=== PATIENT | female | born 1990 | race Caucasian/White ===

== ENCOUNTER 2020-03-28 00:31 | Outpatient (CLI) | payer BC, SELFPAY ==
[2020-03-28 21:18] LABS: SARS-CoV-2 RNA PCR Negative
== END 2020-03-28 00:32 | disposition home or self-care (01) ==
LOC: ANHCOVIDDT 00:31
PROVIDERS: Visit Provider Obstetrics & Gynecology
DX: Z01.812 Encounter for preprocedural laboratory examination (principal); Z20.828 Contact with and (suspected) exposure to other viral communicable diseases
CPT/HCPCS: 87635; C9803; U0003

== ENCOUNTER 2020-03-31 00:14 | Day surgery (SDC) | payer BC, SELFPAY ==
[2020-03-19 11:47] VITALS: BMI 22.3
--- NOTE | 2020-03-30 11:57 | P.PNAN_ITS ---
Anes - Initial Pre Proc Eval Procedure: Operation Date: 03/31/20 13:30 Proposed Procedures p Laparoscopy with Surgical Fulguration and Excision Lesions of Right Ovary - Kirit Amanda MD Date/Time: 03/30/20 11:57 Surgeon: Kirit Amanda MD Pre Op Diagnosis: pelvic and perineal pain Patient Data Age: 30 Gender: F Height: 1.63 m Weight: 58.97 kg Allergies Allergy/AdvReac Type Severity Reaction Status Date / Time No Known Allergies Allergy Verified 03/31/20 11:31 Home Medications Medication Instructions Recorded Confirmed Type multivitamin 1 tablet PO DAILY 03/19/20 03/31/20 History norgestimate-ethinyl estradiol 1 tablet PO DAILY 03/19/20 03/31/20 History [Tri-Sprintec (28)] Patient hx anesthesia problems: none Family hx anesthesia problems: none [facility] Social History Social History Smoking status: Never smoker Alcohol intake: current Drinks per week: 1 Spiritual care concerns: No Anes - Eval Final PreProcedure Day of Procedure 03/30/20 11:57 Patient weight: normal Heart: regular rate and rhythm Lungs: clear to auscultation and normal air movement Airway: Mallampati scale class II Neurological: alert and oriented Last oral intake: >/= 8 hours ASA classification: I Emergent: no Anesthetic plan: proceed Anesthesia type and monitoring: general ETT Informed Consent: The patient's anesthetic plan and its attendant risks and benefits were discussed with the patient/family/POA. Questions were solicited and answers provided to the satisfaction of the patient/family/POA.
[2020-03-31] VITALS (12 sets, daily range): BP systolic 107–121; BP diastolic 55–67; PULSE 73–100; RESP 14–18; TEMP 36.3–37.2; O2SAT 98–100
[2020-03-31] MEDS: ACETAMINOPHEN 500 MG TABLET 1000 MG PO (12:03)
[2020-03-31] MEDS: KETOROLAC 15 MG/ML VIAL (*BKC) IV PUSH (12:03)
[2020-03-31] MEDS: LACTATED RINGERS 1,000 ML 30 ML IV CONT ×3 (12:09→17:29)
--- NOTE | 2020-03-31 13:36 | WPDHPUPDATE1 ---
History and Physical Update Update Date/Time: 03/31/20 13:36 History and Physical has been reviewed, including an updated exam of the patient. There are NO changes in the patient's condition. Risks, benefits, and alternatives have been discussed and questions answered. Patient agrees to proceed with procedure.
--- NOTE | 2020-03-31 17:03 | SUR.OPER ---
EBL:5cc
[2020-03-31] MEDS: diphenhydrAMINE HCl INJ 50 MG/ML VIAL 25 MG IV PUSH (17:10)
--- NOTE | 2020-03-31 17:11 | P.OP_ITS ---
Procedure Note - Detailed Date of procedure: 03/31/20 Pre-op diagnosis: pelvic and perineal pain Post-op diagnosis: same ( Severe endometriosis, adhesions) Procedure performed: 2 hours of adhesiolysis, excision of endometriosis and fulguration of endometriosis. Description of procedure: The patient was taken the operating room. She was prepped and draped in the dorsal lithotomy position after induction of general anesthesia. A 5 mm left upper quadrant incision was made in the abdominal skin with a scalpel. A 5 mm trocar was inserted the intra-abdominal cavity under direct visualization of the scope. A 5 mm left lower quadrant incision was made with the scalp on the abdominal skin and a 5 mm trocar was inserted the intra- abdominal cavity under direct visualization of the scope. A 5 mm infraumbilical incision was made with scalpel and a 5 mm trocar was inserted into the intra- abdominal cavity under direct visualization of the scope. Extensive adhesiolysis, excision of endometriosis and fulguration of endometriosis. The peritoneum was removed from the posterior cul-de-sac and entirely. There were some areas on the posterior uterus that were fulgurated. There was some apparent myometrial tissue that was fulgurated as well. There was fulguration of endometriosis on the bladder. Both ureters were dissected out from the pelvic brim down to the level of the uterine artery. over 2 hours of adhesion lysis, excision of endometriosis and fulguration of endometriosis was performed. The pelvis was irrigated with copious amounts of normal saline. The pneumoperitoneum was reduced. The trocars were removed. The patient was taken recovery room stable condition. Sponge lap and needle counts were correct x2. Anesthesia: GETA Surgeon: Kirit Amanda MD Estimated blood loss (mL): 100 Drains: No Packing: No Complications: No immediate complications Condition: stable Disposition: PACU Findings: endometriosis throughout the posterior cul-de-sac, there was an endometrioma of the right ovary, there was hard old blood clot within the endometrioma. There was endometriosis on the right infundibulopelvic ligament. There was endometriosis on the right side of the dome of the bladder. There was endometriosis deep in the posterior cul-de-sac and around the round ligaments.
[2020-03-31] MEDS: SCOPOLAMINE 1.5 MG PATCH TRANSDERM (17:22)
[2020-03-31] MEDS: ONDANSETRON INJ 4 MG/2 ML VIAL IV PUSH (18:25)
== END 2020-03-31 19:59 | disposition home or self-care (01) ==
PROVIDERS: Visit Provider Obstetrics & Gynecology
PROC: (CPT 49320; principal; 2020-03-31 13:30)
DX: R10.2 Pelvic and perineal pain (principal); N80.3 Endometriosis of pelvic peritoneum; N80.1 Endometriosis of ovary; N80.8 Other endometriosis; N73.6 Female pelvic peritoneal adhesions (postinfective)
CPT/HCPCS: 58662; 36415; 86850; 86900; 86901; 88305; A9270; J1100; J1200; J1885; J2250; J2405; J2704; J2710; J3010; J7030; J7120; Q9968

== ENCOUNTER 2022-10-24 16:56 | Outpatient (CLI) | payer BC, SELFPAY ==
[2022-10-24 17:50] VITALS: BP 119/74; PULSE 91
--- NOTE | 2022-10-24 17:50 | PC.NURSE ---
called Dr. Amanda notified pt visit for leaking fluid. reported negative ROM plus and reactive tracing. Made aware of contraction which pt not feeling. discharge order received
== END 2022-10-24 18:00 | disposition home or self-care (01) ==
LOC: ANHOBOP 17:42 → ANHLDR 17:42
PROVIDERS: Visit Provider Obstetrics & Gynecology
DX: O42.90 Premature rupture of membranes, unspecified as to length of time between rupture and onset of labor, unspecified weeks of gestation (principal)
CPT/HCPCS: 59025; 84112; 99199

== ENCOUNTER 2022-11-20 02:07 | Inpatient (IN) | payer BC, SELFPAY ==
[2022-11-20] VITALS (27 sets, daily range): BP systolic 99–142; BP diastolic 56–81; PULSE 76–135; RESP 18; TEMP 36.3–37.5; O2SAT 98; BMI 28.3
[2022-11-20 03:03] LABS: Basophils Percent Auto 0.3 % (0.2-1.2); Eosinophils Absolute Auto 0.1 K/mm3 (0-0.3); Eosinophils Percent Auto 0.9 % (0-4.4); Hematocrit 35.5 % (37.0-47.0); Hemoglobin 11.2 g/dL (12.0-15.0); Immature Granulocyte Absolute 0.15 K/mm3 (0.00-0.031); Immature Granulocyte Percent A 1.2 % (0-0.5); Lymphocytes Absolute Auto 2.22 K/mm3 (0.9-3.2); Lymphocytes Percent Auto 17.4 % (18.3-44.2); Mean Corpuscular HGB Conc 31.5 g/dl (32-36); Mean Corpuscular Hemoglobin 25.9 pg (26-34); Mean Platelet Volume 9.9 fl (7.4-10.4); Monocytes Percent Auto 7.5 % (2.6-8.5); Neutrophils Absolute Auto 9.3 K/mm3 (1.3-6.7); Neutrophils Percent Auto 72.7 % (45.5-73.1); Platelet Count Result 303 k/mm3 (150-375); Red Blood Count 4.33 M/mm3 (4.2-5.4); Red Cell Distribution Width 14.9 % (11.5-14.5); White Blood Count 12.8 K/mm3 (4.5-10.0)
--- NOTE | 2022-11-20 03:04 | LDADM ---
This patient, Megan Dyson, was admitted to Labor/Delivery/Recovery 104 on 11/20/22 at 02:07. Plans for labor, pain management and were discussed with patient. Patient/family oriented to hospital policies and general routines including ID bracelet, bed and alarms, visiting hours, pain management, procedures, bathroom and other care routines, personal items, smoking policy, room service/diet and guest tray routines, security routines, and visiting hours. Patient/Family are encouraged to report perceived risks to care and to ask questions if they do not understand what they are told or what they should do. See OBIX for further documentation.
--- NOTE | 2022-11-20 08:17 | WPDOBADMIT ---
Obstetrics - Admit Note Admission Note: record reviewed. No pertinent additions to the history and/or any subsequent changes in the physical findings that are not consistent with the expected course of the were found. pt arrived in labor sve 5/-1 AROM, moderate amount of clear, odorless fluid, anticipate vaginal delivery Additions to the history and/or subsequent changes in the physical findings follow. None.
[2022-11-20] MEDS: LACTATED RINGERS 1,000 ML 75 ML IV CONT (11:13)
[2022-11-20] MEDS: OXYTOCIN 30 UNITS/NS 500 ML 30 UNITS/500 ML BAG IV CONT (16:22)
[2022-11-20] MEDS: LIDOCAINE HCL 1% LOCAL INJ 20 ML VIAL (20:11)
--- NOTE | 2022-11-20 20:29 | PM.OBPRVD ---
OB - Delivery Note Procedure Delivery date: 11/20/22 Procedure: Delivery augmentation: Rupture of Membranes and Pitocin Delivery monitor: External FHT and External Uterine Route of delivery: Laceration Description: Perineal - 1st Degree Delivery repair: vicryl Specimen: No Quantitative Blood Loss (ml): 220 Anesthesia type: Local Disposition: Floor Gracey Baby Date of : 11/20/22 Time of : 20:03 Weeks of gestation at delivery: 40 gender: Female presentation: vertex position: Left Occiput Anterior Placenta delivery description: Spontaneous Cord Vessel Description: 3 Vessels, Clamped/Cut, Delayed Cord Clamping and Other (velamentous insertion) score one minute: 9 score five minutes: 9 Narrative: mother and baby skin to skin in stable condition
[2022-11-20] MEDS: OXYTOCIN 30 UNITS/NS 500 ML 30 UNITS/500 ML BAG 125 UNITS IV CONT (20:56)
[2022-11-20] MEDS: BENZOCAINE 20% AER SPR (*SP) 56 GM CAN 1 SPRAY TOPICAL (22:30)
[2022-11-20] MEDS: WITCH HAZEL 40 PADS 1 PAD TOPICAL (22:30)
[2022-11-20] MEDS: IBUPROFEN 600 MG TABLET PO (23:05)
--- NOTE | 2022-11-20 23:27 | PC.NURSE ---
11/20/2022 at 2249 Patient transferred to post room #288 via wheelchair. Support person present. Oriented to unit, room, information board, rooming in, admission packet and security measures. Patient verbalizes understanding.
[2022-11-21 04:40] VITALS: BP 119/67; PULSE 99; RESP 18; TEMP 37.2; O2SAT 99
[2022-11-21 05:04] LABS: Hematocrit 30.8 % (37.0-47.0); Hemoglobin 9.7 g/dL (12.0-15.0)
[2022-11-21 05:37] LABS: Rapid Plasma Reagin Non-Reactive (NonReactive)
--- NOTE | 2022-11-21 06:39 | PM.OBPNVD ---
OB - PN: Subj Subjective Date/time seen: 11/21/22 06:39 s/p vaginal delivery day 1 breast feeding doing well OB - PN: Obj Data Labs 11/21/22 04:47 Labs: Laboratory Results - last 24 hr 11/20/22 11/21/22 02:51 04:47 Hgb 9.7 L Hct 30.8 L RPR Non-reactive OB - PN A/P Plan day: 1 Plan: routine care Time Spent With Patient Time: Total time spent is greater than 50% in coordination of care (as documented) at patient's floor/unit and/or counseling patient: Review of Systems Review of Systems: All systems reviewed & are unremarkable except as noted in HPI and below Exam Const: General: cooperative and healthy appearing Resp: Effort & Inspection: normal respiratory effort Cardio: Rate: regular rate Rhythm: regular rhythm GI: Inspection: normal to inspection Back/Spine/Pelvis: Back: no CVA tenderness Skin: General skin exam: normal color Extrem: Right lower extremity: normal to inspection Left lower extremity: normal to inspection Psych: Appearance: grossly normal
[2022-11-21 07:35] VITALS: BP 107/61; PULSE 88; RESP 20; TEMP 36.7; O2SAT 96
[2022-11-21] MEDS: POLYSACCHARIDE IRON COMPLEX 150 MG CAPSULE PO ×2 (08:24→15:18)
[2022-11-21] MEDS: DOCUSATE SODIUM 100 MG CAPSULE PO ×2 (08:24→15:18)
[2022-11-21] MEDS: MULTIVIT/MIN/PREN/FOL AC/IRON TABLET 1 TAB PO (08:24)
[2022-11-21] MEDS: IBUPROFEN 600 MG TABLET PO ×2 (08:25→15:18)
--- NOTE | 2022-11-21 13:31 | PC.NURSE ---
[id number] Introductions were made, then consulted with patient to assess needs related to . Mother led the conversation with her?plans to feed?her infant and the?experience so far. Resources provided for inpatient and outpatient services with a business card. Breast pump provided due to separation with . Instructions given on cleaning, care, usage, that there should be no pain, pumping schedule for milk production, collection, and storage of human milk. Parents are encouraged to record pumping schedule on the pumping log. Patient was assessed for correct placement, flange size, to pump for comfort and nipple stretching/stimulation for adequate milk production every 3 hours (8 times in 24 hours) 1-2 times at night. Mother voiced understanding of the education shared along with mom and baby guide for additional resource information. Reported to the primary RN.
[2022-11-21 15:25] VITALS: BP 119/78; PULSE 96; RESP 16; TEMP 36.4; O2SAT 100
--- NOTE | 2022-11-22 14:57 | PM.OBDSVD ---
DS: Admitting Diagnosis Discharge Date 11/21/22 Admitting Diagnosis labor DS: Discharge Diagnosis Discharge Diagnosis (1) Vaginal delivery: Code(s): O80 - Encounter for full-term uncomplicated delivery Status: Acute OB - DS: Summary OB Procedures : None OB Procedures Intrapartum: Spontaneous Vag Delivery OB Procedures: : None Time Spent with Patient Time attestation: Total time spent providing and/or coordinating discharge services: Discharge Plan Discharge Discharging Clinician: Carline Rojas Patient Disposition: Home, Self-Care Activity: pelvic rest Diet: regular Discharge Instructions: Education: Mom and Baby Guide Given to: Mother Follow-Up: Call your delivering provider's office for an appointment to be seen in: 4 Weeks BREAST CARE: * Wear a snug supportive bra. * For engorgement discomfort: Breast Feeding: * Apply warm moist washcloths * Express milk as needed to relieve engorgement * Wear loose clothing * For sore nipples: * Identify correct latch-on * Apply warm moist washcloths before and after nursing * Air dry nipples after nursing * May apply Lansinoh cream to nipples EPISIOTOMY/PERINEAL CARE: * Until bleeding stops, use your gio bottle after urinating * Change your pad frequently throughout the day * You may take sitz baths several times a day (fill your bathtub with warm water and soak for 20 minutes.) Do NOT bathe in the water * No tub baths until seen by your physician - You may shower ACTIVITY: * Rest as much as possible. * Do not exercise or lift anything heavier than your baby (such as laundry or other children.) * Avoid stairs or driving as much as possible. * Do not put anything into the vagina. No douching, tampons, or sexual activity until seen by physician. NOTIFY PHYSICIAN IF YOU HAVE ANY QUESTIONS OR IF ANY OF THE FOLLOWING SYMPTOMS OCCUR: * If your episiotomy or incision becomes red, swollen, or more painful than what you have experienced in the hospital. * If your vaginal bleeding becomes foul smelling. * If your vaginal bleeding becomes more heavy than a period or if your bleeding changes from pink to bright red. However, you may pass an occasional walnut-sized clot once or twice for the first week . * If you experience a sharp, shooting pain in you calves. * If you discover a hard, reddened area on your breast or if you experience flu-like symptoms. DIET: * Eat regular, well-balanced meals. * Drink plenty of fluids daily. If , drink to thirst. Stand Alone Forms: General Discharge Information Follow-up/Referrals: Carline Rojas CNM [Certified Nurse [employer]uber] - Discharge Medications: Continued multivitamin Tablet 1 tablet PO DAILY Date of admission: 11/20/22 02:07 Primary Care Provider: PHYSICIAN,LANDSCAPING MANAGER Admitting Provider: Kirit Amanda Attending physician on admission: Kirit Amanda Condition: Stable
--- NOTE | 2022-11-23 07:41 | P.DS_ITS ---
DS: Admitting Diagnosis Discharge Date 11/21/22 Admitting Diagnosis labor DS: Discharge Diagnosis Discharge Diagnosis (1) Vaginal delivery: Code(s): O80 - Encounter for full-term uncomplicated delivery Status: Acute OB - DS: Summary OB Procedures : None OB Procedures Intrapartum: Spontaneous Vag Delivery OB Procedures: : None Time Spent with Patient Time attestation: Total time spent providing and/or coordinating discharge services: Discharge Plan Discharge Consulting providers: Carline Rojas Discharging Clinician: Carline Rojas Patient Disposition: Home, Self-Care Activity: pelvic rest Diet: regular Discharge Instructions: Education: Mom and Baby Guide Given to: Mother Follow-Up: Call your delivering provider's office for an appointment to be seen in: 4 Weeks BREAST CARE: * Wear a snug supportive bra. * For engorgement discomfort: Breast Feeding: * Apply warm moist washcloths * Express milk as needed to relieve engorgement * Wear loose clothing * For sore nipples: * Identify correct latch-on * Apply warm moist washcloths before and after nursing * Air dry nipples after nursing * May apply Lansinoh cream to nipples EPISIOTOMY/PERINEAL CARE: * Until bleeding stops, use your gio bottle after urinating * Change your pad frequently throughout the day * You may take sitz baths several times a day (fill your bathtub with warm water and soak for 20 minutes.) Do NOT bathe in the water * No tub baths until seen by your physician - You may shower ACTIVITY: * Rest as much as possible. * Do not exercise or lift anything heavier than your baby (such as laundry or other children.) * Avoid stairs or driving as much as possible. * Do not put anything into the vagina. No douching, tampons, or sexual activity until seen by physician. NOTIFY PHYSICIAN IF YOU HAVE ANY QUESTIONS OR IF ANY OF THE FOLLOWING SYMPTOMS OCCUR: * If your episiotomy or incision becomes red, swollen, or more painful than what you have experienced in the hospital. * If your vaginal bleeding becomes foul smelling. * If your vaginal bleeding becomes more heavy than a period or if your bleeding changes from pink to bright red. However, you may pass an occasional walnut- sized clot once or twice for the first week . * If you experience a sharp, shooting pain in you calves. * If you discover a hard, reddened area on your breast or if you experience flu- like symptoms. DIET: * Eat regular, well-balanced meals. * Drink plenty of fluids daily. If , drink to thirst. Stand Alone Forms: General Discharge Information Follow-up/Referrals: Carline Rojas CNM [Certified Nurse Street Vendor] - Discharge Medications: Continued multivitamin Tablet 1 tablet PO DAILY Date of admission: 11/20/22 02:07 Primary Care Provider: PHYSICIAN,STITCHER AROUND Admitting Provider: Kirit Amanda Attending physician on admission: Kirit Amanda Condition: Stable
== END 2022-11-21 16:25 | disposition home or self-care (01) | DRG 807 ==
LOC: ANHLDR 02:27 → ANHOB2 22:50
PROVIDERS: Advanced Practice Midwife; Admitting Provider Obstetrics & Gynecology; Visit Provider Obstetrics & Gynecology
DX: O43.123 Velamentous insertion of umbilical cord, third trimester (principal); Z37.0 Single live birth; Z3A.40 40 weeks gestation of pregnancy; O70.0 First degree perineal laceration during delivery
CPT/HCPCS: 36415; 85014; 85018; 85025; 86592; 86850; 86900; 86901; A9270; J2590; J7120